=== PATIENT | female | born 1990 | race African-American/Black ===

== ENCOUNTER 2024-07-04 15:10 | Emergency (ER) | payer OTHER ==
[~2024-07-04] VITALS: Ht 149.9 cm; Wt 59.0 kg
[2024-07-04 15:15] VITALS: PULSE 93; RESP 16; TEMP 98.8; O2SAT 99
[2024-07-04] MEDS ORDERED: AZITHROMYCIN250 MG PO (16:28)
== END 2024-07-04 17:21 | disposition home or self-care (01) ==
LOC: ER 15:38
DX: H92.01 Otalgia, right ear (principal); J02.9 Acute pharyngitis, unspecified
CPT/HCPCS: 99282